=== PATIENT | female | born 1965 | race Caucasian/White ===

== ENCOUNTER 2017-11-14 08:00 | Outpatient (CLI) | payer OTHER | END 2017-11-14 08:01 | LOC: LAB.R 08:00 | PROVIDERS: ATTEND Nurse Practitioner Primary Care | DX: N30.00 Acute cystitis without hematuria (principal) | CPT/HCPCS: 87086 ==

== ENCOUNTER 2017-11-24 09:43 | Outpatient (CLI) | payer OTHER ==
[2017-11-24 10:09] LABS: BASOPHILS # (AUTO) 0.1 10^3/uL (0.0-0.1); EOSINOPHILS # (AUTO) 0.5 10^3/uL (0.0-0.7); EOSINOPHILS % (AUTO) 3.7 %; HGB - HEMOGLOBIN 14.2 g/dL (12.0-16.0); LYMPHOCYTES # (AUTO) 2.4 10^3/uL (1.5-3.5); MEAN CORPUSCULAR HGB CONC 34.1 g/dL (32.0-36.0); MEAN CORPUSCULAR VOLUME 90.8 fL (81.0-99.0); MEAN PLATELET VOLUME 7.5 fL (7.9-10.8); MONOCYTES # (AUTO) 0.6 10^3/uL (0.0-1.0); MONOCYTES % (AUTO) 5.2 %; NEUTROPHILS # (AUTO) 8.9 10^3/uL (1.5-6.6); NEUTROPHILS % (AUTO) 71.1 %; PLT - PLATELET COUNT 336 10^3/uL (130-450); RED CELL DISTRIBUTION WIDTH 12.4 % (12.0-15.0); WHITE BLOOD COUNT 12.5 x10^3/uL (4.8-10.8)
[2017-11-24 10:23] LABS: ALBUMIN 3.8 g/dL (3.2-5.5); BILIRUBIN,TOTAL 0.5 mg/dL (0.2-1.0); CREATININE 1.3 mg/dL (0.4-1.0); TOTAL PROTEIN 7.8 g/dL (6.7-8.2)
[2017-11-24] MEDS ORDERED: IOPAMIDOL-300 50 ML VIAL ONE (10:39)
[2017-11-24] MEDS ORDERED: IOPAMIDOL-300 100 ML VIAL ONE (10:39)
[2017-11-24] MEDS ORDERED: IOPAMIDOL-300 100 ML VIAL IVP ONE (11:35)
[2017-11-24] MEDS ORDERED: IOPAMIDOL-300 50 ML VIAL PO ONE (11:35)
--- NOTE | 2017-11-24 14:20 | CT Report ---
CT ABDOMEN WITH CONTRAST: 11/24/2017 CLINICAL INDICATION: Abdomen pain, epigastric region. TECHNIQUE: Axial CT images of the abdomen were obtained with 50 mL Isovue 300 intravenously, due to the patient's renal dysfunction, as well as oral contrast. COMPARISON: 11/16/2011. FINDINGS: Limited evaluation of the lung bases is unremarkable. ABDOMEN: The left kidney demonstrates marked hydronephrosis, with an 11 x 8 mm calculus in the proximal left ureter. It also demonstrates delayed contrast uptake. Bilateral nephrolithiasis is present, with collecting system calculi measuring up to 7 mm on the right and 5 mm on the left. The liver, spleen, pancreas and adrenal glands are unremarkable. The gallbladder is not dilated. No bowel dilatation, free gas, or free fluid is present. No abdominal adenopathy is seen. Osseous structures demonstrate degenerative changes. IMPRESSION: 1. OBSTRUCTING PROXIMAL LEFT URETERIC CALCULUS, MEASURING 11 X 8 MM, WITH DELAYED LEFT RENAL CONTRAST EXCRETION. 2. BILATERAL NEPHROLITHIASIS. Results called to HALINA Childs, on 11/24/2017 at 11:[address] DOSE REDUCTION STATEMENT In accordance with CT protocol optimization, one or more of the following dose reduction techniques were utilized for this exam: automated exposure control, adjustment of mA and/or KV based on patient size, or use of iterative reconstructive technique. TD: 11/24/2017 11:49 MTDD
== END 2017-11-24 09:44 | disposition home or self-care (01) ==
LOC: DI 09:43
PROVIDERS: ATTEND Nurse Practitioner Primary Care
DX: N20.2 Calculus of kidney with calculus of ureter (principal)
CPT/HCPCS: 36415; 74160; 80053; 83690; 85025; Q9967

== ENCOUNTER 2017-11-29 08:00 | Outpatient (CLI) | payer OTHER ==
[2017-11-29 11:03] LABS: BASOPHILS # (AUTO) 0.1 10^3/uL (0.0-0.1); BASOPHILS % (AUTO) 0.5 %; EOSINOPHILS # (AUTO) 0.4 10^3/uL (0.0-0.7); EOSINOPHILS % (AUTO) 2.7 %; HGB - HEMOGLOBIN 14.1 g/dL (12.0-16.0); LYMPHOCYTES # (AUTO) 1.9 10^3/uL (1.5-3.5); MEAN CORPUSCULAR HEMOGLOBIN 30.6 pg (27.0-31.0); MEAN CORPUSCULAR HGB CONC 33.6 g/dL (32.0-36.0); MEAN CORPUSCULAR VOLUME 91.1 fL (81.0-99.0); MEAN PLATELET VOLUME 7.7 fL (7.9-10.8); MONOCYTES % (AUTO) 6.4 %; NEUTROPHILS # (AUTO) 11.5 10^3/uL (1.5-6.6); NEUTROPHILS % (AUTO) 77.4 %; PLT - PLATELET COUNT 336 10^3/uL (130-450); RED CELL DISTRIBUTION WIDTH 12.5 % (12.0-15.0); WHITE BLOOD COUNT 14.9 x10^3/uL (4.8-10.8)
[2017-11-29 11:15] LABS: ALBUMIN 3.8 g/dL (3.2-5.5); BILIRUBIN,TOTAL 0.5 mg/dL (0.2-1.0); CALCIUM 8.7 mg/dL (8.5-10.3); CREATININE 1.1 mg/dL (0.4-1.0); TOTAL PROTEIN 7.6 g/dL (6.7-8.2)
== END 2017-11-29 08:01 | disposition home or self-care (01) ==
LOC: LAB.R 08:00
PROVIDERS: ATTEND Nurse Practitioner Primary Care
DX: N20.0 Calculus of kidney (principal); R10.13 Epigastric pain
CPT/HCPCS: 80053; 83690; 85025

== ENCOUNTER 2017-12-01 15:31 | Outpatient (CLI) | payer OTHER ==
--- NOTE | 2017-12-01 17:27 | Ultrasound Report ---
EXAM: ABDOMEN ULTRASOUND LIMITED, RUQ EXAM DATE: 12/01/2017 04:51 PM. CLINICAL HISTORY: ABDOMINAL PAIN, EPIGASTRIC. COMPARISON: None. TECHNIQUE: Real-time scanning was performed with static images obtained. FINDINGS: Liver: Severe fatty liver. 17.3 cm. Main portal vein flow: Hepatopetal. Gallbladder: Normal. No stones, wall thickening, or sonographic Cochran's sign. Biliary System: The common duct measures 6.2 mm, within normal limits. No intrahepatic or extrahepati c ductal dilatation. Other: The right kidney measures 10.7 cm in length and there is no hydronephrosis. IMPRESSION: 1. No cholelithiasis or cholecystitis. 2. Severe fatty liver. RADIA The call report notification system was initiated by Dr. Veronica Shirley at 17:11 hrs on 12/01/17. The above findings were discussed with HALINA Valiente by Dr. Veronica Shirley at 17:25 hrs on 12/01/17. Referring Provider Line: [phone] SITE ID: [id number]
== END 2017-12-01 15:32 | disposition home or self-care (01) ==
LOC: DI 15:31
PROVIDERS: ATTEND Nurse Practitioner Primary Care
DX: K76.0 Fatty (change of) liver, not elsewhere classified (principal)
CPT/HCPCS: 76705

== ENCOUNTER 2017-12-22 12:48 | Outpatient (CLI) | payer OTHER ==
--- NOTE | 2017-12-22 13:47 | XRAY Report ---
Procedure Date: 12/22/2017 Accession Number: [id number] / [id number] Procedure: XR - Chest 2 View X-Ray CPT Code: 48451 FULL RESULT: EXAM: Chest 2 View X-Ray DATE: 12/22/2017 1:13 PM CLINICAL HISTORY: FEVER OF UNKN,SHOULDER JOINT PAIN RIGHT COMPARISON: 01/26/2011 TECHNIQUE: 2 views. FINDINGS: Lungs/Pleura: No focal opacities evident. No pneumothorax or pleural effusion. Normal volumes. Mediastinum: Heart and mediastinal contours are unremarkable. Other: None. IMPRESSION: Normal 2-view chest radiography. RAD[facility]
--- NOTE | 2017-12-22 13:48 | XRAY Report ---
Procedure Date: 12/22/2017 Accession Number: [id number] / [id number] Procedure: XR - Shoulder 2 View RT CPT Code: FULL RESULT: EXAM: Shoulder 2 View RT DATE: 12/22/2017 1:13 PM CLINICAL HISTORY: FEVER OF UNKN,SHOULDER JOINT PAIN RIGHT COMPARISON: None. TECHNIQUE: 2 views. FINDINGS: Bones: Normal. No fracture or bone lesion. Joints: The glenohumeral and acromioclavicular joints are normal. Soft tissues: The visualized hemithorax is unremarkable. No soft tissue swelling. IMPRESSION: Normal shoulder radiography. RADIA
== END 2017-12-22 12:49 | disposition home or self-care (01) ==
LOC: DI 12:48
PROVIDERS: ATTEND Nurse Practitioner Primary Care
DX: R50.9 Fever, unspecified (principal); M25.511 Pain in right shoulder
CPT/HCPCS: 36415; 71046; 80053; 85025; 87040

== ENCOUNTER 2017-12-22 12:54 | Outpatient (CLI) | payer OTHER ==
[2017-12-22 13:36] LABS: BASOPHILS # (AUTO) 0.1 10^3/uL (0.0-0.1); BASOPHILS % (AUTO) 0.9 %; EOSINOPHILS # (AUTO) 0.3 10^3/uL (0.0-0.7); EOSINOPHILS % (AUTO) 1.9 %; HGB - HEMOGLOBIN 13.7 g/dL (12.0-16.0); LYMPHOCYTES # (AUTO) 3.1 10^3/uL (1.5-3.5); LYMPHOCYTES % (AUTO) 23.8 %; MEAN CORPUSCULAR HEMOGLOBIN 30.3 pg (27.0-31.0); MEAN CORPUSCULAR VOLUME 91.9 fL (81.0-99.0); MEAN PLATELET VOLUME 7.6 fL (7.9-10.8); MONOCYTES # (AUTO) 0.7 10^3/uL (0.0-1.0); MONOCYTES % (AUTO) 5.1 %; NEUTROPHILS % (AUTO) 68.3 %; PLT - PLATELET COUNT 355 10^3/uL (130-450); RED BLOOD COUNT 4.51 10^6/uL (4.20-5.40); RED CELL DISTRIBUTION WIDTH 12.7 % (12.0-15.0); WHITE BLOOD COUNT 13.1 x10^3/uL (4.8-10.8)
[2017-12-22 14:04] LABS: ALBUMIN 4.3 g/dL (3.2-5.5); ALBUMIN/GLOBULIN RATIO 1.1 (1.0-2.2); BILIRUBIN,TOTAL 0.2 mg/dL (0.2-1.0); TOTAL PROTEIN 8.2 g/dL (6.7-8.2)
== END 2017-12-22 12:55 | disposition home or self-care (01) ==
LOC: LAB 12:54
PROVIDERS: ATTEND Nurse Practitioner Primary Care
DX: R50.9 Fever, unspecified (principal)
CPT/HCPCS: 36415; 80053; 85025; 87040

== ENCOUNTER 2018-01-20 09:23 | Emergency (ER) | payer OTHER ==
--- NOTE | 2018-01-20 09:59 | ED Physician Documentation ---
History of Present Illness - Stated complaint Stated Complaint: ABD PX, SOA, BLOOD IN STOOL - Chief complaint Chief Complaint: Abd Pain - History obtained from History obtained from: Patient - History of Present Illness Timing: How many weeks ago (several) Pain level max: 9 Pain level now: 9 Improved by: states nothing really helps the pain Worsened by: eating - Additonal information Additional information: Patient is a 52 year old female with abd pain for several weeks. epigastric. longstanding history of ulcers. States this pain is burning. Took tums and omeprazole without relief. States the shortness of breath is just when the pain is severe. 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) - Present Medications Home Medications: Ambulatory Orders Medication Instructions Recorded Confirmed Citalopram [CeleXA] 20 mg 01/20/18 Cyclobenzaprine [Flexeril] 10 mg 01/20/18 Famotidine [Pepcid] 20 mg PO BID #60 tablet 01/20/18 Hydrocodone/Acetaminophen 1 - 2 each PO Q6H PRN #14 tablet 01/20/18 [Hydrocodon-Acetaminophen 5-325] Lamotrigine [Lamotrigine ER] 150 mg 01/20/18 Omeprazole 01/20/18 Omeprazole [PriLOSEC] 20 mg PO BID #30 capsule 01/20/18 Sucralfate [Carafate] 1 gm PO ACHS #60 tablet 01/20/18 - Allergies Allergies/Adverse Reactions: Allergies Allergy/AdvReac Type Severity Reaction Status Date / Time No Known Drug Allergies Allergy Verified 01/20/18 09:40 - Living Situation Living Situation: reports: With family Living Arrangement: reports: At home - Social History Does the pt smoke?: No Does the pt drink ETOH?: No Does the pt have substance abuse?: No - Family History Family history: reports: Non contributory PD ED PE NORMAL - Vitals Vital signs reviewed: Yes - General General: Alert and oriented X 3, No acute distress - HEENT HEENT: Moist mucous membranes - Neck Neck: Supple, no meningeal sign - Cardiac Cardiac: RRR, Strong equal pulses - Respiratory Respiratory: No respiratory distress, Clear bilaterally - Abdomen Abdomen: Soft, Non distended, Other (TTP epigastric without peritoneal signs. ) - Rectal Rectal: Other (rectal exam - chaperoned by CONVEYOR CONSOLE OPERATOR student Danyell. brown stool. non- bloody. hemoccult negative.) - Back Back: No CVA TTP - Derm Derm: Warm and dry, No rash - Extremities Extremities: No edema - Neuro Neuro: Alert and oriented X 3 - Psych Psych: Normal mood, Normal affect Results - Vitals Vitals: Vital Signs - 24 hr 01/20/18 01/20/18 01/20/18 09:33 11:06 11:44 Temperature 36.8 C 36.9 C Heart Rate 108 H 89 98 Respiratory 16 18 18 Rate Blood Pressure 155/96 H 155/105 H 137/98 H O2 Saturation 93 96 99 Oxygen O2 Source Room air - Labs Labs: Laboratory Tests 01/20/18 01/20/18 01/20/18 10:04 10:15 10:15 WBC 9.7 RBC 4.50 Hgb 13.9 Hct 41.4 MCV 91.9 MCH 31.0 MCHC 33.7 RDW 13.4 Plt Count 300 MPV 8.1 Neut # (Auto) 7.1 H Lymph # (Auto) 1.5 [place] # (Auto) 0.7 Eos # (Auto) 0.2 Baso # (Auto) 0.1 Absolute Nucleated RBC 0.00 Nucleated RBC % 0.0 PT INR APTT Sodium 134 L Potassium 4.2 Chloride 102 Carbon Dioxide 23 Anion Gap 9.0 BUN 18 Creatinine 0.8 Estimated GFR (MDRD) 75 L Glucose 154 H Calcium 9.2 Total Bilirubin 0.6 AST 30 ALT 37 Alkaline Phosphatase 112 Total Protein 7.6 Albumin 3.8 Globulin 3.8 Albumin/Globulin Ratio 1.0 Lipase 50 Urine Color YELLOW Urine Clarity CLEAR Urine pH 7.0 Ur Specific [place] 1.015 Urine Protein NEGATIVE Urine Glucose (UA) NEGATIVE Urine Ketones NEGATIVE Urine Occult Blood NEGATIVE Urine Nitrite NEGATIVE Urine Bilirubin NEGATIVE Urine Urobilinogen 0.2 (NORMAL) Ur Leukocyte Esterase NEGATIVE Ur Microscopic Review NOT INDICATED Urine Culture Comments NOT INDICATED 01/20/18 10:15 WBC RBC Hgb Hct MCV MCH MCHC RDW Plt Count MPV Neut # (Auto) Lymph # (Auto) [place] # (Auto) Eos # (Auto) Baso # (Auto) Absolute Nucleated RBC Nucleated RBC % PT 11.6 INR 1.0 APTT 25.3 Sodium Potassium Chloride Carbon Dioxide Anion Gap BUN Creatinine Estimated GFR (MDRD) Glucose Calcium Total Bilirubin AST ALT Alkaline Phosphatase Total Protein Albumin Globulin Albumin/Globulin Ratio Lipase Urine Color Urine Clarity Urine pH Ur Specific [place] Urine Protein Urine Glucose (UA) Urine Ketones Urine Occult Blood Urine Nitrite Urine Bilirubin Urine Urobilinogen Ur Leukocyte Esterase Ur Microscopic Review Urine Culture Comments PD MEDICAL DECISION MAKING - ED course Complexity details: reviewed results, re-evaluated patient, considered differential, d/w patient ED course: Patient is a 52-year-old female who presents to the emergency department with epigastric pain. Appears likely secondary to gastritis versus peptic ulcer disease. Feels better after GI cocktail and pain medication. Will increase her Prilosec to twice a day, add Pepcid and Carafate. Also recommend that she follow-up closely with her PCP for an endoscopy. Will prescribe a small amount of pain medication for home. We will have her monitor her rectal bleeding at home. No anemia here. Unclear etiology. No blood in the stool on examination here Patient counseled regarding signs and symptoms for which I believe and urgent re-evaluation would be necessary. Patient with good understanding of and agreement to plan and is comfortable going home at this time This document was made in part using voice recognition software. While efforts are made to proofread this document, sound alike and grammatical errors may occur. - Sepsis Event Vital Signs: Vital Signs - 24 hr 01/20/18 01/20/18 01/20/18 09:33 11:06 11:44 Temperature 36.8 C 36.9 C Heart Rate 108 H 89 98 Respiratory 16 18 18 Rate Blood Pressure 155/96 H 155/105 H 137/98 H O2 Saturation 93 96 99 Oxygen O2 Source Room air Departure - Departure Disposition: 01 Home, Self Care Clinical Impression: Hematochezia Gastritis Qualifiers: Gastritis type: unspecified gastritis Chronicity: acute Gastritis bleeding: without bleeding Qualified Code(s): K29.00 - Acute gastritis without bleeding Condition: Good Instructions: ED Hematochezia Stable, ED PUD Vs Gastritis Follow-Up: Alexandru Valiente ARNP [Primary Care Provider] - Within 1 week Prescriptions: Famotidine [Pepcid] 20 mg PO BID #60 tablet Hydrocodone/Acetaminophen [Hydrocodon-Acetaminophen 5-325] 1 - 2 each PO Q6H PRN #14 tablet PRN Reason: pain Omeprazole [PriLOSEC] 20 mg PO BID #30 capsule Sucralfate [Carafate] 1 gm PO ACHS #60 tablet Comments: Return if you worsen. It is important to follow-up closely with your doctor to have an endoscopy scheduled. It appears that your symptoms are likely related to your history of ulcers. You should also be tested for H. pylori. Do not drink alcohol or drive while on narcotic pain medicine. Note that many narcotic pain relievers also contain tylenol/acetaminophen. Please ensure that your total dose of acetaminophen from all sources does not exceed 3 grams (3000mg) per day. You may constipated on this medication, take a stool softener such as "Colace" twice a day while you are on it. Also recommend a kebu-ebk-crnhtvm laxative such as senna or MiraLAX any day that you do not have a bowel movement. If you received narcotic pain medication in the emergency department, do not drive or operate machinery for the next 24 hours. Discharge Date/Time: 01/20/18 11:55
[2018-01-20] MEDS ORDERED: LIDOCAINE VISCOUS 2% 15 ML UDC MM STA (10:02)
[2018-01-20] MEDS ORDERED: MAG HYDROX/AL HYDROX/SIMETH 30 ML UDC PO STA (10:02)
[2018-01-20] MEDS ORDERED: FAMOTIDINE 20 MG TABLET PO STA (10:02)
[2018-01-20] MEDS ORDERED: PHENobarb/HYOSCY/ATROPINE/SCOP 5 ML UDC PO STA (10:02)
[2018-01-20] MEDS ORDERED: SUCRALFATE 1 GM/10 ML UDC PO STA (10:02)
[2018-01-20 10:11] LABS: BILIRUBIN,URINE NEGATIVE (NEGATIVE); GLUCOSE, URINE (UA) NEGATIVE (NEGATIVE); KETONES,URINE (UA) NEGATIVE (NEGATIVE); LEUKOCYTE ESTERASE, URINE NEGATIVE (NEGATIVE); NITRITE,URINE NEGATIVE (NEGATIVE); OCCULT BLOOD,URINE NEGATIVE (NEGATIVE); PROTEIN,URINE NEGATIVE (NEGATIVE); UROBILINOGEN,URINE 0.2 (NORMAL) E.U./dL (NORMAL)
[2018-01-20 10:17] LABS: CLARITY,URINE CLEAR (CLEAR)
[2018-01-20 10:35] LABS: BASOPHILS # (AUTO) 0.1 10^3/uL (0.0-0.1); EOSINOPHILS # (AUTO) 0.2 10^3/uL (0.0-0.7); HGB - HEMOGLOBIN 13.9 g/dL (12.0-16.0); LYMPHOCYTES # (AUTO) 1.5 10^3/uL (1.5-3.5); LYMPHOCYTES % (AUTO) 15.9 %; MEAN CORPUSCULAR HGB CONC 33.7 g/dL (32.0-36.0); MEAN CORPUSCULAR VOLUME 91.9 fL (81.0-99.0); MEAN PLATELET VOLUME 8.1 fL (7.9-10.8); MONOCYTES # (AUTO) 0.7 10^3/uL (0.0-1.0); MONOCYTES % (AUTO) 7.7 %; NEUTROPHILS # (AUTO) 7.1 10^3/uL (1.5-6.6); NEUTROPHILS % (AUTO) 73.4 %; PLT - PLATELET COUNT 300 10^3/uL (130-450); RED CELL DISTRIBUTION WIDTH 13.4 % (12.0-15.0); WHITE BLOOD COUNT 9.7 x10^3/uL (4.8-10.8)
[2018-01-20 10:45] LABS: PT - PROTHROMBIN TIME 11.6 secs (9.9-12.6)
[2018-01-20 10:47] LABS: ALBUMIN 3.8 g/dL (3.2-5.5); BILIRUBIN,TOTAL 0.6 mg/dL (0.2-1.0); CALCIUM 9.2 mg/dL (8.5-10.3); CREATININE 0.8 mg/dL (0.4-1.0); TOTAL PROTEIN 7.6 g/dL (6.7-8.2)
[2018-01-20] MEDS ORDERED: MORPHINE 10 MG/ML VIAL IVP STA (11:00)
[2018-01-20] MEDS ORDERED: HYDROcod/ACETAM 5/325 MG TABLET PO STA (11:40)
[2018-01-20 11:45] VITALS: BP 137/98
== END 2018-01-20 11:55 | disposition home or self-care (01) ==
LOC: ED 09:23
DX: K29.00 Acute gastritis without bleeding (principal); K92.1 Melena; Z87.11 Personal history of peptic ulcer disease; Z87.442 Personal history of urinary calculi
CPT/HCPCS: 36415; 80053; 81003; 83690; 85025; 85610; 85730; 96374; 99283; 99284; A9270; 81001; 87086

== ENCOUNTER 2018-03-13 08:00 | Outpatient (CLI) | payer OTHER ==
[2018-03-13 18:36] LABS: BILIRUBIN,URINE NEGATIVE (NEGATIVE); CLARITY,URINE CLEAR (CLEAR); GLUCOSE, URINE (UA) NEGATIVE (NEGATIVE); KETONES,URINE (UA) TRACE mg/dL (NEGATIVE); LEUKOCYTE ESTERASE, URINE NEGATIVE (NEGATIVE); NITRITE,URINE NEGATIVE (NEGATIVE); OCCULT BLOOD,URINE NEGATIVE (NEGATIVE); PROTEIN,URINE NEGATIVE (NEGATIVE); UROBILINOGEN,URINE 0.2 (NORMAL) E.U./dL (NORMAL)
== END 2018-03-13 08:01 | disposition home or self-care (01) ==
LOC: LAB.R 08:00
PROVIDERS: ATTEND Nurse Practitioner Primary Care
DX: N20.0 Calculus of kidney (principal); M54.5 Low back pain
CPT/HCPCS: 81001; 81003; 87086

== ENCOUNTER 2018-03-29 17:24 | Outpatient (CLI) | payer OTHER ==
--- NOTE | 2018-03-30 08:46 | XRAY Report ---
Reason: BACK PAIN,LUMBAR WITH RADCULOPATHY Procedure Date: 03/29/2018 Accession Number: [id number] / [id number] Procedure: XR - Lumbar Spine 2 View CPT Code: FULL RESULT: EXAM: LUMBOSACRAL SPINE RADIOGRAPHY EXAM DATE: 03/29/2018 05:38 PM. CLINICAL HISTORY: Back pain, lumbar with radiculopathy. COMPARISONS: None. TECHNIQUE: 2 views. FINDINGS: Alignment: There is 2 mm of anterolisthesis of L5 on S1. No scoliosis. Bones: Five [id number] lumbar vertebral bodies are present. No fractures or bone lesions. Disks: Normal. Disk heights are maintained. Facets: Marked facet arthropathy is seen at the L5-S1 distribution. Sacroiliac Joints: Unremarkable. Soft Tissues: Normal. The visualized bowel gas pattern is normal. IMPRESSION: Combination of marked single level facet arthropathy with mild grade 1 anterolisthesis at L5-S1 raises the question of spondylolysis which is not visualized on the examination. RAD[facility]
== END 2018-03-29 17:25 | disposition home or self-care (01) ==
LOC: DI 17:24
PROVIDERS: ATTEND Nurse Practitioner Primary Care
DX: M54.16 Radiculopathy, lumbar region (principal); M07.60 Enteropathic arthropathies, unspecified site
CPT/HCPCS: 72100

== ENCOUNTER 2018-05-09 08:15 | Outpatient (CLI) | payer OTHER | END 2018-05-09 08:16 | LOC: LAB.N 08:15 | PROVIDERS: ATTEND Nurse Practitioner Primary Care | DX: E55.9 Vitamin D deficiency, unspecified (principal) | CPT/HCPCS: 36415; 82306 ==

== ENCOUNTER 2018-05-10 09:31 | Emergency (ER) | payer OTHER ==
[2018-05-10 09:41] VITALS: BP 151/88
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
== END 2018-05-10 11:07 | disposition home or self-care (01) ==
LOC: ED 09:31
DX: S60.211A Contusion of right wrist, initial encounter (principal); Y00.XXXA Assault by blunt object, initial encounter; Y93.89 Activity, other specified; Y92.099 Unspecified place in other non-institutional residence as the place of occurrence of the external cause; Y99.0 Civilian activity done for income or pay; I10 Essential (primary) hypertension; E11.9 Type 2 diabetes mellitus without complications; Z79.84 Long term (current) use of oral hypoglycemic drugs
CPT/HCPCS: 1040M; 29125; 73110; 99282; 99283

== ENCOUNTER 2018-06-05 11:45 | Outpatient (CLI) | payer OTHER | END 2018-06-05 11:46 | disposition home or self-care (01) | LOC: RT 11:45 | PROVIDERS: ATTEND Physician Assistant | DX: Z01.810 Encounter for preprocedural cardiovascular examination (principal) | CPT/HCPCS: 93005 ==

== ENCOUNTER 2018-11-23 08:00 | Outpatient (CLI) | payer OTHER | END 2018-11-23 23:59 | disposition home or self-care (01) | LOC: LAB.R 08:00 | PROVIDERS: ATTEND Nurse Practitioner | DX: N39.0 Urinary tract infection, site not specified (principal) | CPT/HCPCS: 87086 ==

== ENCOUNTER 2019-01-01 11:43 | Outpatient (CLI) | payer OTHER | END 2019-01-01 11:44 | disposition critical access hospital (66) | LOC: EMS 11:43 | PROVIDERS: ATTEND Surgery | DX: R50.9 Fever, unspecified (principal); R68.89 Other general symptoms and signs; R11.10 Vomiting, unspecified | CPT/HCPCS: A0425; A0429 ==

== ENCOUNTER 2019-01-01 12:02 | Emergency (ER) | payer OTHER ==
[2019-01-01] MEDS ORDERED: PROMETHAZINE INJ 25 MG in SODIUM CHLORIDE 0.9% 50 ML IV STA (12:22)
[2019-01-01] MEDS ORDERED: SODIUM CHLORIDE 0.9% 1,000 ML IV ONE ×2 (12:23)
--- NOTE | 2019-01-01 12:27 | ED Physician Documentation ---
History of Present Illness - Stated complaint Stated Complaint: FEVER - Chief complaint Chief Complaint: Fever - History obtained from History obtained from: Patient - History of Present Illness Timing: How many weeks ago (1) Pain level max: 3 Pain level now: 3 - Additonal information Additional information: 53-year-old female presents to the emergency department with fever since last week. She states she has not had coughing. Has had intermittent vomiting. Has left-sided abdominal pain as well. No diarrhea or constipation. No urinary symptoms. No neck pain. No back pain. Did have back surgery in May 2017. She is not having any pain in this area currently. No numbness or tingling. No focal neurological deficits. Better with Tylenol, worse with eating and drinking. Review of Systems Ten Systems: 10 systems reviewed and negative Constitutional: reports: Fever Ears: denies: Ear pain Nose: denies: Rhinorrhea / runny nose, Congestion Throat: denies: Sore throat Respiratory: denies: Cough, Wheezing GI: reports: Abdominal Pain (Left side), Nausea, Vomiting. 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 - Present Medications Home Medications: Ambulatory Orders Medication Instructions Recorded Confirmed Citalopram [CeleXA] 20 mg PO DAILY 01/20/18 05/08/18 Cyclobenzaprine [Flexeril] 10 mg PO QPM 01/20/18 05/08/18 Lamotrigine [Lamotrigine ER] 100 mg PO BID 01/20/18 05/08/18 Cholecalciferol [Vitamin D3] 10,000 unit PO DAILY 05/08/18 05/08/18 Dextroamphetamine/Amphetamine 20 mg PO DAILY 05/08/18 05/08/18 [Adderall 20 mg Tablet] Metformin HCl 500 mg PO DAILY 05/08/18 05/08/18 Omeprazole [PriLOSEC] 40 mg PO DAILY 05/08/18 05/08/18 Sucralfate [Carafate] 1 gm PO Q6H 05/08/18 05/08/18 - Allergies Allergies/Adverse Reactions: Allergies Allergy/AdvReac Type Severity Reaction Status Date / Time No Known Drug Allergies Allergy Verified 05/10/18 09:41 - Social History Does the pt smoke?: No Smoking Status: Never smoker Does the pt drink ETOH?: No Does the pt have substance abuse?: No PD ED PE NORMAL - Vitals Vital signs reviewed: Yes - General General: Alert and oriented X 3, No acute distress, Well developed/nourished - HEENT HEENT: PERRL, Moist mucous membranes - Neck Neck: Supple, no meningeal sign - Cardiac Cardiac: RRR, Strong equal pulses - Respiratory Respiratory: No respiratory distress, Clear bilaterally - Abdomen Abdomen: Soft, Non distended, Other (Tender to palpation left lower quadrant and left upper quadrant. No peritoneal signs) - Back Back: No CVA TTP, No spinal TTP - Derm Derm: Warm and dry - Extremities Extremities: No edema, No calf tenderness / cord - Neuro Neuro: Alert and oriented X 3 - Psych Psych: Normal mood, Normal affect Results - Vitals Vitals: Vital Signs - 24 hr 01/01/19 01/01/19 01/01/19 12:06 12:14 15:20 Temperature 39.2 C H 39.2 C H 99.4 C H Heart Rate 114 H 106 H 97 Respiratory 25 H 20 25 H Rate Blood Pressure 156/92 H 156/97 H 161/92 H O2 Saturation 99 96 98 01/01/19 01/01/19 17:00 20:04 Temperature 37.1 C Heart Rate 110 H 108 H Respiratory 20 20 Rate Blood Pressure 125/81 H 129/85 H O2 Saturation 99 99 Oxygen O2 Source Room air - Labs Labs: Laboratory Tests 01/01/19 01/01/19 01/01/19 12:40 13:07 13:07 WBC 22.5 H RBC 3.98 L Hgb 10.9 L Hct 33.8 L MCV 84.9 MCH 27.4 MCHC 32.2 RDW 14.8 Plt Count 396 MPV 9.5 Neut # (Auto) 20.3 H Lymph # (Auto) 0.7 L [place] # (Auto) 1.2 H Eos # (Auto) 0.1 Baso # (Auto) 0.1 Absolute Nucleated RBC 0.00 Nucleated RBC % 0.0 Manual Slide Review Indicated Platelet Estimate NORMAL (130-450,000) Platelet Morphology NORMAL APPEARANCE RBC Morph Micro Appear NORMAL APPEARANCE Sodium 132 L Potassium 3.7 Chloride 100 L Carbon Dioxide 18 L Anion Gap 14.0 H BUN 22 H Creatinine 1.4 H Estimated GFR (MDRD) 39 L Glucose 152 H Lactic Acid 0.9 Calcium 8.7 Total Bilirubin 0.6 AST 17 ALT 18 Alkaline Phosphatase 122 H Total Protein 7.1 Albumin 3.3 Globulin 3.8 Albumin/Globulin Ratio 0.9 L Lipase 40 Urine Color Urine Clarity Urine pH Ur Specific [place] Urine Protein Urine Glucose (UA) Urine Ketones Urine Occult Blood Urine Nitrite Urine Bilirubin Urine Urobilinogen Ur Leukocyte Esterase Urine RBC Urine WBC Ur Squamous Epith Cells Urine Bacteria Ur Microscopic Review Urine Culture Comments 01/01/19 13:25 WBC RBC Hgb Hct MCV MCH MCHC RDW Plt Count MPV Neut # (Auto) Lymph # (Auto) [place] # (Auto) Eos # (Auto) Baso # (Auto) Absolute Nucleated RBC Nucleated RBC % Manual Slide Review Platelet Estimate Platelet Morphology RBC Morph Micro Appear Sodium Potassium Chloride Carbon Dioxide Anion Gap BUN Creatinine Estimated GFR (MDRD) Glucose Lactic Acid Calcium Total Bilirubin AST ALT Alkaline Phosphatase Total Protein Albumin Globulin Albumin/Globulin Ratio Lipase Urine Color YELLOW Urine Clarity SL. CLOUDY Urine pH 7.5 Ur Specific [place] 1.010 Urine Protein 30 H Urine Glucose (UA) NEGATIVE Urine Ketones NEGATIVE Urine Occult Blood LARGE H Urine Nitrite NEGATIVE Urine Bilirubin NEGATIVE Urine Urobilinogen 0.2 (NORMAL) Ur Leukocyte Esterase LARGE H Urine RBC 11-25 H Urine WBC 6-10 H Ur Squamous Epith Cells RARE Squamous Urine Bacteria Rare Ur Microscopic Review INDICATED Urine Culture Comments INDICATED - Rads (name of study) CT abd/pelvis Radiology: Prelim report reviewed, EMP read contemporaneously, See rad report (Obstructing left distal ureteral calculus, 0.9 cm. Suggestion of nonobstructing 6 mm right distal ureteral calculus as described. ) PD MEDICAL DECISION MAKING - ED course Complexity details: reviewed results, re-evaluated patient, considered differential, d/w patient, d/w it consultant ED course: 53-year-old female with what appears to be bilateral ureteral stones, the left side is 0.9 cm. Causing hydronephrosis. Also has more stones in the renal calyx. Appears to have a right-sided 6 mm stone as well. She has been having fevers for the past week. No vomiting. Given Rocephin. Given IV fluids. Given Zofran, Phenergan and Toradol. She has a urologist Dr. Holman In [place]. Will contact him for transfer. 1600 d/w Dr. Holman and recommends transfer to [facility] in [place] for further care. 1700 - D/w ED MD at [facility] and recommends hospitalist admission. D/w Dr. Calvillo hospitalist who graciously accepts in transfer. COBRA forms completed. This document was made in part using voice recognition software. While efforts are made to proofread this document, sound alike and grammatical errors may occur. Departure - Departure Disposition: 02 Transfer Acute Care Hosp Clinical Impression: Ureteral stone, Pyelonephritis Fever Qualifiers: Fever type: unspecified Qualified Code(s): R50.9 - Fever, unspecified Vomiting Qualifiers: Vomiting type: unspecified Vomiting Intractability: non-intractable Nausea presence: with nausea Qualified Code(s): R11.2 - Nausea with vomiting, unspecified Condition: Stable Discharge Date/Time: 01/01/19 21:18
[2019-01-01] MEDS ORDERED: IOVERSOL 320 100 ML VIAL IVP ONE ×2 (12:52→14:50)
--- NOTE | 2019-01-01 13:06 | XRAY Report ---
Reason: fever Procedure Date: 01/01/2019 Accession Number: [id number] / [id number] Procedure: XR - Chest 1 View X-Ray CPT Code: 93660 FULL RESULT: EXAM: CHEST RADIOGRAPHY EXAM DATE: 01/01/2019 12:55 PM. CLINICAL HISTORY: Fever. COMPARISON: CHEST 2 VIEW 12/22/2017 12:58 PM. TECHNIQUE: 1 view. FINDINGS: Lungs/Pleura: No focal opacities evident. No pleural effusion. No pneumothorax. Mediastinum: Within exam limitations, the cardiomediastinal contour is normal. Other: None. IMPRESSION: No definite pneumonia is detected. RADIA
[2019-01-01 13:10] LABS: BASOPHILS # (AUTO) 0.1 10^3/uL (0.0-0.1); BASOPHILS % (AUTO) 0.3 %; EOSINOPHILS # (AUTO) 0.1 10^3/uL (0.0-0.7); EOSINOPHILS % (AUTO) 0.3 %; HGB - HEMOGLOBIN 10.9 g/dL (12.0-16.0); LYMPHOCYTES # (AUTO) 0.7 10^3/uL (1.5-3.5); LYMPHOCYTES % (AUTO) 3.1 %; MEAN CORPUSCULAR HEMOGLOBIN 27.4 pg (27.0-31.0); MEAN CORPUSCULAR HGB CONC 32.2 g/dL (32.0-36.0); MEAN CORPUSCULAR VOLUME 84.9 fL (81.0-99.0); MEAN PLATELET VOLUME 9.5 fL (7.9-10.8); MONOCYTES # (AUTO) 1.2 10^3/uL (0.0-1.0); MONOCYTES % (AUTO) 5.2 %; NEUTROPHILS # (AUTO) 20.3 10^3/uL (1.5-6.6); PLT - PLATELET COUNT 396 10^3/uL (130-450); RED BLOOD COUNT 3.98 10^6/uL (4.20-5.40); RED CELL DISTRIBUTION WIDTH 14.8 % (12.0-15.0); WHITE BLOOD COUNT 22.5 x10^3/uL (4.8-10.8)
[2019-01-01 13:26] LABS: ALBUMIN 3.3 g/dL (3.2-5.5); ALBUMIN/GLOBULIN RATIO 0.9 (1.0-2.2); BILIRUBIN,TOTAL 0.6 mg/dL (0.2-1.0); CALCIUM 8.7 mg/dL (8.5-10.3); CREATININE 1.4 mg/dL (0.4-1.0); TOTAL PROTEIN 7.1 g/dL (6.7-8.2)
[2019-01-01] MEDS ORDERED: ACETAMINOPHEN 325 MG TABLET PO STA (13:26)
[2019-01-01 13:38] LABS: BILIRUBIN,URINE NEGATIVE (NEGATIVE); GLUCOSE, URINE (UA) NEGATIVE (NEGATIVE); KETONES,URINE (UA) NEGATIVE (NEGATIVE); LEUKOCYTE ESTERASE, URINE LARGE (NEGATIVE); NITRITE,URINE NEGATIVE (NEGATIVE); OCCULT BLOOD,URINE LARGE (NEGATIVE); PH,URINE 7.5 PH (5.0-7.5); PROTEIN,URINE 30 mg/dL (NEGATIVE); UROBILINOGEN,URINE 0.2 (NORMAL) E.U./dL (NORMAL)
[2019-01-01 13:41] LABS: CLARITY,URINE SL. CLOUDY (CLEAR)
[2019-01-01 13:43] LABS: PLATELET ESTIMATE, MANUAL NORMAL (130-450,000) (NORMAL); PLATELET MORPHOLOGY NORMAL APPEARANCE (NORMAL); RBC MORPHOLOGY (MULTIPLE) NORMAL APPEARANCE (NORMAL)
[2019-01-01 13:50] LABS: BACTERIA,URINE Rare /HPF (None Seen); SQUAMOUS EPITHELIAL CELL,UR RARE Squamous (<= Few)
[2019-01-01] MEDS ORDERED: ONDANSETRON 4 MG/2 ML VIAL IVP STA (14:10)
[2019-01-01] MEDS ORDERED: cefTRIAXone 1 GM VIAL IVP STA (14:30)
--- NOTE | 2019-01-01 15:02 | CT Report ---
Reason: fever, vomiting Procedure Date: 01/01/2019 Accession Number: [id number] / [id number] Procedure: CT - Abdomen/Pelvis W CPT Code: FULL RESULT: EXAM: CT ABDOMEN AND PELVIS WITH CONTRAST. EXAM DATE: 01/01/2019 02:29 PM. CLINICAL HISTORY: Fever, vomiting. COMPARISONS: CT ABDOMEN W/ 11/24/2017. TECHNIQUE: Routine helical CT imaging was performed through the abdomen and pelvis. IV contrast: OPTI-320 100 mL. Enteric contrast: No. Reconstructions: Coronal and sagittal. In accordance with CT protocol optimization, one or more of the following dose reduction techniques were utilized for this exam: automated exposure control, adjustment of mA and/or KV based on patient size, or use of iterative reconstructive technique. FINDINGS: Lung Bases: Unremarkable. Liver: Normal. No masses. Gallbladder/Bile Ducts: Unremarkable. Spleen: Normal. Pancreas: Normal. Adrenal Glands: Normal. Kidneys: Left kidney is enlarged with dilation of the collecting system and ureter as well as perinephric fat stranding in the setting of obstructing distal left 0.9 cm ureteral calculus. Left kidney contains additional nonobstructing calculi, the largest of which is within the renal pelvis and measures 1.4 x 1.3 cm. Right kidney contains a nonobstructing 0.7 cm calculus and demonstrates no hydronephrosis despite what is felt to be a 0.6 cm distal ureteral calculus near the ureterovesical junction on the right. Bilateral renal hypodensities are too small to characterize. Peritoneal Cavity/Bowel: There is no free fluid or free air. No bowel obstruction. Prominent lymph nodes adjacent to the left kidney as seen on image 33 series 3 are felt to be reactive given the adjacent pathology. Pelvic Organs: Bladder is empty with subjectively thick bladder, possibly due to underdistention. Vasculature: No aneurysms or other significant abnormality. Bones: The patient is status post L4-L5 fusion with interbody graft and posterior pedicle screws bilaterally at both levels with interconnecting tahmina. No aggressive osseous lesions are detected. Other: None. IMPRESSION: Obstructing left distal ureteral calculus, 0.9 cm. Suggestion of nonobstructing 6 mm right distal ureteral calculus as described. RADIA The call report notification system was initiated by Dr. Juan Jose Rhoades at 03:00 PM on 01/01/2019. The above call report findings were discussed with Paresh Gomez by Dr. Juan Jose Rhoades at 03:07 PM on 01/01/2019.
[2019-01-01] MEDS ORDERED: KETOROLAC 30 MG/ML VIAL IVP STA (15:09)
[2019-01-01] MEDS ORDERED: HYDROmorphone 1 MG/ML CARPUJECT IVP STA ×4 (16:29→21:03)
[2019-01-01 20:05] VITALS: BP 129/85
== END 2019-01-01 21:18 | disposition short-term general hospital (02) ==
LOC: EDUNIT# → ED 12:02
DX: N13.2 Hydronephrosis with renal and ureteral calculous obstruction (principal); N12 Tubulo-interstitial nephritis, not specified as acute or chronic; I10 Essential (primary) hypertension; E11.9 Type 2 diabetes mellitus without complications; Z79.84 Long term (current) use of oral hypoglycemic drugs; K21.9 Gastro-esophageal reflux disease without esophagitis
CPT/HCPCS: 36415; 71045; 74177; 80053; 81001; 83605; 83690; 85025; 87077; 87086; 87181; 96365; 96375; 96376; 99285; A9270; J1170; J7040; Q9967; 81003

== ENCOUNTER 2019-01-07 11:19 | Outpatient (CLI) | payer OTHER ==
[2019-01-07 11:36] LABS: BILIRUBIN,URINE NEGATIVE (NEGATIVE); CLARITY,URINE HAZY (CLEAR); GLUCOSE, URINE (UA) NEGATIVE (NEGATIVE); KETONES,URINE (UA) NEGATIVE (NEGATIVE); LEUKOCYTE ESTERASE, URINE MODERATE (NEGATIVE); NITRITE,URINE NEGATIVE (NEGATIVE); OCCULT BLOOD,URINE MODERATE (NEGATIVE); PH,URINE 6.5 PH (5.0-7.5); PROTEIN,URINE 100 mg/dL (NEGATIVE); UROBILINOGEN,URINE 0.2 (NORMAL) E.U./dL (NORMAL)
[2019-01-07 11:43] LABS: ALBUMIN 3.6 g/dL (3.2-5.5); ALBUMIN/GLOBULIN RATIO 0.7 (1.0-2.2); BILIRUBIN,TOTAL 0.2 mg/dL (0.2-1.0); CREATININE 1.5 mg/dL (0.4-1.0); TOTAL PROTEIN 8.6 g/dL (6.7-8.2)
[2019-01-07 12:03] LABS: BACTERIA,URINE Few /HPF (None Seen); SQUAMOUS EPITHELIAL CELL,UR MANY Squamous (<= Few); WBC CLUMPS,URINE PRESENT
== END 2019-01-07 11:20 | disposition home or self-care (01) ==
LOC: LAB 11:19
PROVIDERS: ATTEND Nurse Practitioner
DX: N12 Tubulo-interstitial nephritis, not specified as acute or chronic (principal)
CPT/HCPCS: 36415; 80053; 81001; 81003; 87086

== ENCOUNTER 2019-01-14 13:30 | Outpatient (CLI) | payer OTHER | END 2019-01-14 13:31 | disposition home or self-care (01) | LOC: LAB 13:30 | PROVIDERS: ATTEND Urology | DX: T81.44XA Sepsis following a procedure, initial encounter (principal); N20.0 Calculus of kidney | CPT/HCPCS: 87086 ==

== ENCOUNTER 2019-04-23 08:58 | Outpatient (CLI) | payer OTHER ==
--- NOTE | 2019-04-23 09:41 | SLEEP CARE CONSULTATION ---
Information from patient questionnaire entered by Negar Meza. I have reviewed and concur with the information entered by Negar Meza. This document represents the service I personally performed and the decisions made by me, Carlota Leroy MD, [facility]. History of Present Illness Reason for Visit: New patient Chief Complaint: reports: Insomnia, Unrefreshed sleep, Snoring, Excessive daytime sleepiness, Observed pauses in breathing, Fatigue, Frequent awakenings at night Usual bedtime: [id number] Time it takes to fall asleep: 30 minutes Snores at night: Yes Observed to quit breathing while asleep: Yes Sleeps alone due to snoring: No Number of times waking at night: 2-3 Reasons for waking at night: reports: Gasping for air, Bathroom Toss, Turn, or Twitch while sleeping: Yes Recalls having dreams: Yes Usually gets out of bed at: 0600 Feels refreshed in the morning: No Morning headache: Yes Sleepy or fatigued during the day: Yes Ever fallen asleep while driving: Yes Takes day naps: No Dreams during day naps: Yes Prior sleep studies: No Additional HPI information: I had the pleasure of seeing Ms. Mccormick today regarding the possibility of her having a sleep disorder. As you know, she is a 53 year old lady who has been instructed by hospital staff on several occasions to have a sleep study because they witnessed snore and apneic episodes during her hospital stays. She, however, has lost 50 lbs in the last 6 months. At home she sleeps alone but recalls waking up choking and having to gasp for air. She is sleepy during the day. She is bothered by restless leg syndrome. Subjective Initial [place] Sleepiness Scale score: 13 Past Medical History Past Medical History: reports: Claustrophobia, Diabetes, Arthritis, Hypothyroidism, Anemia, Anxiety, Depression, Mood disorder, GERD, Attention deficit, Other (shoulder surgery) Social History The patient's occupation is a [employer]. Patient is and lives in [place]. Have you smoked in the past 12 months: No Alcohol use: No Caffeine use: No Family History Family history of sleep disordered breathing: Yes Family Hx Sleep Apnea: Sibling: Sleep apnea - Treated Allergies and Home Medications Drug allergies reviewed: Yes Home medication list reviewed: Yes Review of Systems Weight loss over past 5 years: 50 Cardiovascular: denies: high blood pressure, palpitations, chest pain, irregular heart rate or pulse, leg or foot swelling, have to sleep sitting up, other Respiratory: reports: shortness of breath Gastrointestinal: reports: heartburn, nausea, vomitting Urinary: reports: frequency (but I drink a lot of water because of meds), other (kidney stones) Neurological: reports: headaches, other (back surgery) Psychiatric: reports: Attention Deficit Hyperactivity, anxiety, depression, mood disorder, claustrophobia Ear/Nose/Throat: reports: dry mouth/throat, tonsillectomy, wisdom teeth removed Endocrine: reports: thyroid disease, sluggishness, too hot or cold (*hot), excessive thirst Musculoskeletal: reports: joint pain, back pain, mobility problems, other (had back/shoulder surgery 06/12,09/11,10/12, still in physical therapy for shoulder) Immunologic: denies: sneezing, rash, itching, allergies to food or environment, other Physical Exam Vital signs obtained and entered by: Dr. Leroy Blood Pressure: 137/92 Heart Rate: 91 O2 Saturation: 97 Height: 4 ft 10 in Weight: 151 lb Body Mass Index: 31.5 BMI Classification: Obesity Class 1 Neck circumference: 14.5 HEENT: No craniofacial malformation Nostrils: patent to airflow Turbinates: normal Septum: midline Mouth and throat: normal Soft palate: normal Hard palate: normal Uvula: normal Uvula visualization: 100% Mallampati Class I Tongue: normal in size Tonsils: absent bilaterally Chin and jaw: normal size and position Neck: normal w/o lymphadenopathy or thyromegaly Heart: regular rate and rhythm Lungs: clear bilaterally Abdomen: soft, non-tender Extremities: no edema or clubbing Neurologic: intact, no focal deficits Impression and Plan IMPRESSION: 1. Obstructive Sleep Apnea-Hypopnea Syndrome, as suggested by history of loud and irregular snoring, observed cessation of breath while asleep, frequent awakenings during the night, unrefreshed sleep, and daytime hypersomnolence. Obesity is a common predisposing factor for obstructive sleep apnea-hypopnea syndrome. Pathophysiology of sleep-disordered breathing was discussed. I recommend proceeding to polysomnography to confirm the diagnosis and to assess severity. If she has significant sleep disordered breathing, a manual CPAP titration study will also be performed to find the optimal treatment pressure. I informed the patient of what the sleep studies involve and after some discussion, she agreed to proceed. Plan: 1. Schedule polysomnography + manual CPAP titration study and return in 1 to 2 weeks after the study to discuss result and initiate therapy. 2. Avoid long distance driving or when feeling sleepy. 3. Avoid alcohol, sedative and muscle relaxant around bedtime. 4. Attempt to lose weight. I spent 100% of this 20 minute visit face to face with the patient with greater than 50% of this was spent time counseling the patient and coordination of care.
[2019-04-23 09:42] VITALS: BP 137/92
== END 2019-04-23 08:59 | disposition home or self-care (01) ==
LOC: SC 08:58
PROVIDERS: ATTEND Internal Medicine Pulmonary Disease
DX: G47.10 Hypersomnia, unspecified (principal); R06.81 Apnea, not elsewhere classified; G47.8 Other sleep disorders; R06.83 Snoring; E66.9 Obesity, unspecified; Z68.31 Body mass index [BMI] 31.0-31.9, adult
CPT/HCPCS: 99203; 99212

== ENCOUNTER 2019-06-02 19:45 | Emergency (ER) | payer OTHER ==
--- NOTE | 2019-06-02 20:42 | ED Physician Documentation ---
PD HPI Fall - Stated complaint Stated Complaint: GLF/R SHOULDER/BACK/HEAD PX - Chief complaint Chief Complaint: Back Pain - History obtained from History obtained from: Patient - History of Present Illness Mechanism of injury: Lost balance Fall distance: Standing position, Less than 5ft Where injury occurred: Home Timing - onset: Today Injury(ies) location: Head, Back, Right Upper Extremity Quality of pain: Pain Associated symptoms: Nausea / vomiting, Other (trouble concentrating). 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 She fell and hit the left side of her head she is complaining of some pain in her right shoulder and her lower back. She has had surgery on her lower back in her right surgery right shoulder in September of this year her pain is rated as a 7 out of 10 in the shoulder as a 6 out of 10 in the back and she has some trouble concentrating and a bit of nausea she does not think she was knocked out and she denies any neck pain. Review of Systems Constitutional: denies: Fever Eyes: denies: Decreased vision Ears: denies: Ear pain Nose: denies: Congestion Throat: denies: Sore throat Cardiac: denies: Chest pain / pressure, Palpitations Respiratory: denies: Dyspnea, Cough GI: reports: Nausea Skin: denies: Rash Musculoskeletal: reports: Back pain, Joint pain. denies: Neck pain, Joint swelling Neurologic: reports: Other (trouble concentrating). 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 - Present Medications Home Medications: Ambulatory Orders Medication Instructions Recorded Confirmed Citalopram [CeleXA] 20 mg PO DAILY 01/20/18 05/08/18 Cyclobenzaprine [Flexeril] 10 mg PO QPM 01/20/18 05/08/18 Lamotrigine [Lamotrigine ER] 100 mg PO BID 01/20/18 05/08/18 Cholecalciferol [Vitamin D3] 10,000 unit PO DAILY 05/08/18 05/08/18 Dextroamphetamine/Amphetamine 20 mg PO DAILY 05/08/18 05/08/18 [Adderall 20 mg Tablet] Metformin HCl 500 mg PO DAILY 05/08/18 05/08/18 Omeprazole [PriLOSEC] 40 mg PO DAILY 05/08/18 05/08/18 Sucralfate [Carafate] 1 gm PO Q6H 05/08/18 05/08/18 Oxycodone HCl/Acetaminophen 1 - 2 each PO Q6H PRN #14 tablet 06/02/19 [Percocet 5-325 mg Tablet] - Allergies Allergies/Adverse Reactions: Allergies Allergy/AdvReac Type Severity Reaction Status Date / Time No Known Drug Allergies Allergy Verified 05/10/18 09:41 - Social History Does the pt smoke?: No Smoking Status: Never smoker Does the pt drink ETOH?: No Does the pt have substance abuse?: No PD ED PE NORMAL - Vitals Vital signs reviewed: Yes (hypertensive ) - General General: Alert and oriented X 3, Well developed/nourished, Other (Facial expression of pain with admissions evaluator tone and flattened affect.) - HEENT HEENT: PERRL, EOMI, Other (Tender left occipital scalp with out crepitance or step-off.) - Neck Neck: Supple, no meningeal sign, No bony TTP - Cardiac Cardiac: RRR, No murmur - Respiratory Respiratory: No respiratory distress, Clear bilaterally - Abdomen Abdomen: Soft, Non tender - Back Back: No CVA TTP, Other (Minimal lower lumbar paraspinous muscle tenderness. Bilateral) - Derm Derm: Normal color, Warm and dry, No rash - Extremities Extremities: No deformity, No edema, Other (There is full range of motion to the right shoulder and she is able to hold the shoulder in abduction. 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, No motor deficit, No sensory deficit, Normal speech Eye Opening: Spontaneous Motor: Obeys Commands Verbal: Oriented GCS Score: 15 - Psych Psych: Normal mood Results - Vitals Vitals: Vital Signs - 24 hr 06/02/19 19:50 Temperature 36.3 C L Heart Rate 96 Respiratory 18 Rate Blood Pressure 126/82 H O2 Saturation 99 Oxygen O2 Source Room air - Rads (name of study) shoulder Radiology: Prelim report reviewed (Impression: No acute bony abnormality.), EMP read indepedently, See rad report CT head w/o Radiology: Prelim report reviewed (Impression: Normal head CT.), EMP read indepedently, See rad report PD MEDICAL DECISION MAKING - ED course Complexity details: reviewed old records, reviewed results, re-evaluated patient, considered differential, d/w patient ED course: 53-year-old female is fallen off of her wash machine directly onto her back she has had a concussion and has pain to her shoulder and lower back. There is no evidence of fracture on x-ray examination and no evidence of intracranial bleed on CT scanning of the head. Patient is given instructions regarding concussion and back contusion as well as shoulder sprain and she is treated in the emergency department with oral Percocet. She has a prior history of use of Percocet for preop and postoperative pain and she has tolerated this medicine without excessive use. Departure - Departure Disposition: 01 Home, Self Care Clinical Impression: Contusion of back Qualifiers: Encounter type: initial encounter Laterality: unspecified laterality Qualified Code(s): S20.229A - Contusion of unspecified back wall of thorax, initial encounter Concussion Qualifiers: Encounter type: initial encounter Loss of consciousness presence/duration: without LOC Qualified Code(s): S06.0X0A - Concussion without loss of consciousness, initial encounter Sprain of shoulder, right Qualifiers: Encounter type: initial encounter Shoulder sprain type: unspecified sprain Qualified Code(s): S43.401A - Unspecified sprain of right shoulder joint, initial encounter Condition: Stable Instructions: ED Concussion, ED Contusion Back, ED Sprain Shoulder Follow-Up: Pippa Turk ARNP, [facility] [Primary Care Provider] - Prescriptions: Oxycodone HCl/Acetaminophen [Percocet 5-325 mg Tablet] 1 - 2 each PO Q6H PRN #14 tablet PRN Reason: pain
[2019-06-02] MEDS ORDERED: oxyCODONE 5 MG TABLET PO STA (20:43)
[2019-06-02] MEDS ORDERED: ACETAMINOPHEN 325 MG TABLET PO STA (20:44)
--- NOTE | 2019-06-02 21:11 | CT Report ---
Reason: fall from washing machine concussion Procedure Date: 06/02/2019 Accession Number: [id number] / [id number] Procedure: CT - HEAD WO CPT Code: Final Report FULL RESULT: EXAM: CT HEAD EXAM DATE: 06/02/2019 08:58 PM. CLINICAL HISTORY: Fall from washing machine concussion. COMPARISON: None. TECHNIQUE: Multiaxial CT images were obtained from the foramen magnum to the vertex. Reformats: Sagittal and coronal. IV contrast: None. In accordance with CT protocol optimization, one or more of the following dose reduction techniques were utilized for this exam: automated exposure control, adjustment of mA and/or KV based on patient size, or use of iterative reconstructive technique. FINDINGS: Parenchyma: No intraparenchymal hemorrhage. No evidence of mass, midline shift, or CT findings of infarction. Rucker-white differentiation is distinct. Extraaxial Spaces: Normal for age. No subdural or epidural collections identified. Ventricles: Normal in size and position. Sinuses and Orbits: Imaged paranasal sinuses, orbits, and mastoids show no significant abnormality. Bones: No evidence of fracture or calvarial defect. Other: None. IMPRESSION: Normal head CT. RADIA
--- NOTE | 2019-06-02 21:23 | XRAY Report ---
Reason: fall right shoulder pain s/p cuff repair Procedure Date: 06/02/2019 Accession Number: [id number] / [id number] Procedure: XR - Shoulder 3 View RT CPT Code: Final Report FULL RESULT: EXAM: RIGHT SHOULDER RADIOGRAPHY EXAM DATE: 06/02/2019 08:45 PM. CLINICAL HISTORY: Fall right shoulder pain status post cuff repair. COMPARISON: SHOULDER 2 VIEW RT 12/22/2017 12:58 PM. TECHNIQUE: 3 views. FINDINGS: Bones: No fractures or bone lesions. Tendon anchor noted at the humeral head. Joints: The glenohumeral and acromioclavicular joints are normal. Soft tissues: The visualized hemithorax is unremarkable. No soft tissue swelling. IMPRESSION: No acute bony abnormality. RADIA
[2019-06-02] MEDS ORDERED: oxyCODONE/ACET 5/325 Prepack 4 PO STA (21:49)
--- NOTE | 2019-06-02 21:58 | XRAY Report ---
Reason: fall back pain s/p surgery Procedure Date: 06/02/2019 Accession Number: [id number] / [id number] Procedure: XR - Lumbar Spine 2 View CPT Code: Final Report FULL RESULT: EXAM: LUMBOSACRAL SPINE RADIOGRAPHY EXAM DATE: 06/02/2019 09:13 PM. CLINICAL HISTORY: Fall back pain status post surgery. COMPARISONS: LUMBAR SPINE 2 VIEW 03/29/2018 5:27 PM. TECHNIQUE: 3 views. FINDINGS: Posterior rods and pedicle screws with interbody prosthesis seen at L4-L5. Large L5-S1 facet arthropathy. Minimal anterolisthesis L5 on S1 with mild endplate osteophytes. Moderate L3-L4 and L2-L3 degenerative disk disease. Mild T12 and L1 mild anterior wedging of the vertebral bodies, appear chronic. No scoliosis. No evidence for acute fracture. IMPRESSION: No evidence for acute fracture. Degenerative and postsurgical changes as above. RADIA
[2019-06-02 21:59] VITALS: BP 124/78
== END 2019-06-02 21:58 | disposition home or self-care (01) ==
LOC: ED 19:45
DX: S06.0X0A Concussion without loss of consciousness, initial encounter (principal); S43.401A Unspecified sprain of right shoulder joint, initial encounter; S30.0XXA Contusion of lower back and pelvis, initial encounter; W17.89XA Other fall from one level to another, initial encounter; Y93.E9 Activity, other interior property and clothing maintenance; Y92.008 Other place in unspecified non-institutional (private) residence as the place of occurrence of the external cause; I10 Essential (primary) hypertension; E11.9 Type 2 diabetes mellitus without complications; Z79.84 Long term (current) use of oral hypoglycemic drugs
CPT/HCPCS: 70450; 72100; 73030; 99284; A9270

== ENCOUNTER 2019-09-20 18:40 | Outpatient (CLI) | payer MEDICAID | END 2019-09-20 23:59 | disposition critical access hospital (66) | LOC: EMS 18:40 | PROVIDERS: ATTEND Surgery | DX: R41.82 Altered mental status, unspecified (principal) | CPT/HCPCS: A0425; A0427; A0999 ==

== ENCOUNTER 2019-09-20 18:55 | Emergency (ER) | payer MEDICAID, OTHER ==
[2019-09-20] MEDS ORDERED: D5.45NS W/20 MEQ KCL 1,000 ML IV STA (19:02)
--- NOTE | 2019-09-20 19:17 | ED Physician Documentation ---
History of Present Illness - Stated complaint Stated Complaint: OD - Chief complaint Chief Complaint: Neuro - History obtained from History obtained from: Patient, EMS - History of Present Illness Timing: Unknown - Additonal information Additional information: Patient was last seen 2 days ago. Her friend found her today unconscious off the edge of her bed. Unclear what happened. There is a bottle of empty Ativan pills next to the bed. 1 mg. There were 42 pills and this was filled 3 days ago. Per EMS, patient has a history of psychiatric illness. Patient unable to give history. No other history available at this time. Fingerstick glucose was 102 on scene. 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 - Present Medications Home Medications: Ambulatory Orders Medication Instructions Recorded Confirmed Citalopram [CeleXA] 20 mg PO DAILY 01/20/18 05/08/18 Cyclobenzaprine [Flexeril] 10 mg PO QPM 01/20/18 05/08/18 Lamotrigine [Lamotrigine ER] 100 mg PO BID 01/20/18 05/08/18 Cholecalciferol [Vitamin D3] 10,000 unit PO DAILY 05/08/18 05/08/18 Dextroamphetamine/Amphetamine 20 mg PO DAILY 05/08/18 05/08/18 [Adderall 20 mg Tablet] Metformin HCl 500 mg PO DAILY 05/08/18 05/08/18 Omeprazole [PriLOSEC] 40 mg PO DAILY 05/08/18 05/08/18 Sucralfate [Carafate] 1 gm PO Q6H 05/08/18 05/08/18 Oxycodone HCl/Acetaminophen 1 - 2 each PO Q6H PRN #14 tablet 06/02/19 [Percocet 5-325 mg Tablet] - Allergies Allergies/Adverse Reactions: Allergies Allergy/AdvReac Type Severity Reaction Status Date / Time No Known Drug Allergies Allergy Verified 09/20/19 19:01 - Social History Does the pt smoke?: No Smoking Status: Never smoker Does the pt drink ETOH?: No Does the pt have substance abuse?: No PD ED PE NORMAL - Vitals Vital signs reviewed: Yes - General General: Other (Drowsy, arouses to deep stimuli only) - HEENT HEENT: Other (Ecchymosis to the bilateral periorbital areas and forehead.) - Neck Neck: Other (No step-off or deformity) - Cardiac Cardiac: RRR, Strong equal pulses - Respiratory Respiratory: No respiratory distress, Clear bilaterally - Abdomen Abdomen: Soft, Non tender, Non distended - Back Back: No spinal TTP - Derm Derm: Warm and dry - Extremities Extremities: No deformity - Neuro Neuro: Other (Responsive to deep stimuli) Eye Opening: To Pain Motor: Withdraws to Pain Verbal: Confused GCS Score: 10 Results - Vitals Vitals: Vital Signs - 24 hr 09/20/19 09/20/19 09/20/19 18:55 19:03 19:29 Temperature 36.4 C L Heart Rate 79 82 79 Respiratory 16 20 16 Rate Blood Pressure 116/64 114/91 H 118/83 H O2 Saturation 100 100 100 09/20/19 09/20/19 09/20/19 19:45 20:25 20:56 Temperature Heart Rate 77 75 73 Respiratory 14 14 12 Rate Blood Pressure 112/75 103/61 110/71 O2 Saturation 99 98 100 09/20/19 09/20/19 21:19 21:37 Temperature Heart Rate 73 73 Respiratory 14 14 Rate Blood Pressure 94/80 104/73 O2 Saturation 100 99 Oxygen O2 Source Nasal cannula - EKG (time done) 1930 Rate: Rate (enter#) (79) Rhythm: NSR [place]: Normal Intervals: Normal [place] QRS: Normal Ischemia: Normal ST segments - Labs Labs: Laboratory Tests 09/20/19 09/20/19 09/20/19 19:04 19:04 19:04 WBC 10.7 RBC 3.81 L Hgb 11.1 L Hct 36.5 L MCV 95.8 MCH 29.1 MCHC 30.4 L RDW 14.0 Plt Count 285 MPV 9.9 Neut # (Auto) 8.2 H Lymph # (Auto) 1.4 L [place] # (Auto) 0.6 Eos # (Auto) 0.3 Baso # (Auto) 0.1 Absolute Nucleated RBC 0.00 Nucleated RBC % 0.0 Sodium 141 Potassium 2.9 L Chloride 105 Carbon Dioxide 27 Anion Gap 9.0 BUN 19 Creatinine 1.2 H Estimated GFR (MDRD) 47 L Glucose 94 Calcium 8.8 Total Bilirubin 0.2 AST 22 ALT 17 Alkaline Phosphatase 93 Total Protein 6.5 L Albumin 3.6 Globulin 2.9 Albumin/Globulin Ratio 1.2 Lipase 30 TSH 6.35 H Urine Color Urine Clarity Urine pH Ur Specific [place] Urine Protein Urine Glucose (UA) Urine Ketones Urine Occult Blood Urine Nitrite Urine Bilirubin Urine Urobilinogen Ur Leukocyte Esterase Urine RBC Urine WBC Ur Squamous Epith Cells Urine Bacteria Ur Microscopic Review Urine Culture Comments Salicylates < 6.0 Urine Opiates Screen Ur Oxycodone Screen Urine Methadone Screen Ur Propoxyphene Screen Acetaminophen < 10 L Ur Barbiturates Screen Ur Tricyclics Screen Ur Phencyclidine Scrn Ur Amphetamine Screen U Methamphetamines Scrn U Benzodiazepines Scrn Urine Cocaine Screen U Cannabinoids Screen Ethyl Alcohol < 5.0 09/20/19 19:20 WBC RBC Hgb Hct MCV MCH MCHC RDW Plt Count MPV Neut # (Auto) Lymph # (Auto) [place] # (Auto) Eos # (Auto) Baso # (Auto) Absolute Nucleated RBC Nucleated RBC % Sodium Potassium Chloride Carbon Dioxide Anion Gap BUN Creatinine Estimated GFR (MDRD) Glucose Calcium Total Bilirubin AST ALT Alkaline Phosphatase Total Protein Albumin Globulin Albumin/Globulin Ratio Lipase TSH Urine Color YELLOW Urine Clarity CLEAR Urine pH 6.5 Ur Specific [place] 1.015 Urine Protein NEGATIVE Urine Glucose (UA) NEGATIVE Urine Ketones NEGATIVE Urine Occult Blood NEGATIVE Urine Nitrite POSITIVE H Urine Bilirubin NEGATIVE Urine Urobilinogen 0.2 (NORMAL) Ur Leukocyte Esterase SMALL H Urine RBC 6-10 H Urine WBC >25 H Ur Squamous Epith Cells NONE SEEN Urine Bacteria Many H Ur Microscopic Review INDICATED Urine Culture Comments INDICATED Salicylates Urine Opiates Screen NEGATIVE Ur Oxycodone Screen NEGATIVE Urine Methadone Screen NEGATIVE Ur Propoxyphene Screen NEGATIVE Acetaminophen Ur Barbiturates Screen NEGATIVE Ur Tricyclics Screen POSITIVE H Ur Phencyclidine Scrn NEGATIVE Ur Amphetamine Screen NEGATIVE U Methamphetamines Scrn NEGATIVE U Benzodiazepines Scrn POSITIVE H Urine Cocaine Screen NEGATIVE U Cannabinoids Screen NEGATIVE Ethyl Alcohol - Rads (name of study) Head CT Radiology: Prelim report reviewed, EMP read contemporaneously, See rad report (No acute intracranial abnormality) C spine CT Radiology: Prelim report reviewed, EMP read contemporaneously, See rad report (No acute fractures) PD MEDICAL DECISION MAKING - ED course Complexity details: reviewed results, re-evaluated patient, considered differential, d/w patient, d/w child welfare consultant ED course: Patient with an apparent Ativan overdose. Likely intentional. Discussed the case with poison control and they recommend at least a 6 to 8-hour observation period. Patient is arousable, does not need to be intubated at this time. She is signed out to the [facility] emergency department physician awaiting reevaluation when she is awake. She will likely need a social work consult in the morning for suicidal ideation. She is treated for UTI as well with Rocephin. Given IV fluids as well. This document was made in part using voice recognition software. While efforts are made to proofread this document, sound alike and grammatical errors may occur. Departure - Departure Clinical Impression: UTI (urinary tract infection) Qualifiers: Urinary tract infection type: acute cystitis Hematuria presence: without hematuria Qualified Code(s): N30.00 - Acute cystitis without hematuria Medication overdose Qualifiers: Encounter type: initial encounter Injury intent: undetermined intent Qualified Code(s): T50.904A - Poisoning by unspecified drugs, medicaments and biological substances, undetermined, initial encounter Condition: Stable
[2019-09-20 19:24] LABS: BASOPHILS # (AUTO) 0.1 10^3/uL (0.0-0.1); BASOPHILS % (AUTO) 0.5 %; EOSINOPHILS # (AUTO) 0.3 10^3/uL (0.0-0.7); EOSINOPHILS % (AUTO) 2.8 %; HGB - HEMOGLOBIN 11.1 g/dL (12.0-16.0); LYMPHOCYTES # (AUTO) 1.4 10^3/uL (1.5-3.5); LYMPHOCYTES % (AUTO) 13.5 %; MEAN CORPUSCULAR HEMOGLOBIN 29.1 pg (27.0-31.0); MEAN CORPUSCULAR HGB CONC 30.4 g/dL (32.0-36.0); MEAN CORPUSCULAR VOLUME 95.8 fL (81.0-99.0); MEAN PLATELET VOLUME 9.9 fL (7.9-10.8); MONOCYTES # (AUTO) 0.6 10^3/uL (0.0-1.0); MONOCYTES % (AUTO) 5.9 %; NEUTROPHILS # (AUTO) 8.2 10^3/uL (1.5-6.6); NEUTROPHILS % (AUTO) 76.4 %; PLT - PLATELET COUNT 285 10^3/uL (130-450); RED BLOOD COUNT 3.81 10^6/uL (4.20-5.40); WHITE BLOOD COUNT 10.7 x10^3/uL (4.8-10.8)
[2019-09-20 19:26] LABS: MUDS CUTOFF CONCENTRATIONS CUTOFF CONC BELOW:
[2019-09-20 19:30] LABS: BILIRUBIN,URINE NEGATIVE (NEGATIVE); GLUCOSE, URINE (UA) NEGATIVE (NEGATIVE); KETONES,URINE (UA) NEGATIVE (NEGATIVE); LEUKOCYTE ESTERASE, URINE SMALL (NEGATIVE); NITRITE,URINE POSITIVE (NEGATIVE); OCCULT BLOOD,URINE NEGATIVE (NEGATIVE); PH,URINE 6.5 PH (5.0-7.5); PROTEIN,URINE NEGATIVE (NEGATIVE); UROBILINOGEN,URINE 0.2 (NORMAL) E.U./dL (NORMAL)
[2019-09-20 19:37] LABS: CLARITY,URINE CLEAR (CLEAR)
[2019-09-20 19:38] LABS: BACTERIA,URINE Many /HPF (None Seen); SQUAMOUS EPITHELIAL CELL,UR NONE SEEN (<= Few)
[2019-09-20 19:40] LABS: AMPHETAMINE SCREEN,URINE NEGATIVE (NEGATIVE); BENZODIAZEPINES SCREEN, URINE POSITIVE (NEGATIVE); COCAINE SCREEN URINE NEGATIVE (NEGATIVE); METHAMPHETAMINES SCREEN, URINE NEGATIVE (NEGATIVE); OPIATE SCREEN, URINE NEGATIVE (NEGATIVE); TRICYCLIC ANTIDEPRESSANT,URINE POSITIVE (NEGATIVE)
[2019-09-20 19:41] LABS: METHADONE SCREEN, URINE NEGATIVE (NEGATIVE); OXYCODONE SCREEN, URINE NEGATIVE (NEGATIVE); PROPOXYPHENE SCREEN, URINE NEGATIVE (NEGATIVE)
[2019-09-20 19:42] LABS: ACETAMINOPHEN < 10 ug/mL (10-30); ALBUMIN 3.6 g/dL (3.2-5.5); ALBUMIN/GLOBULIN RATIO 1.2 (1.0-2.2); ALKALINE PHOSPHATASE 93 IU/L (42-121); ALT ALANINE AMINOTRANSFERASE 17 IU/L (10-60); AST ASPARTATE AMINOTRANSFERASE 22 IU/L (10-42); BILIRUBIN,TOTAL 0.2 mg/dL (0.2-1.0); BUN - BLOOD UREA NITROGEN 19 mg/dL (6-20); CALCIUM 8.8 mg/dL (8.5-10.3); CARBON DIOXIDE - CO2 27 mmol/L (21-32); CHLORIDE 105 mmol/L (101-111); CREATININE 1.2 mg/dL (0.4-1.0); GLUCOSE 94 mg/dL (70-100); LIPASE 30 U/L (22-51); SALICYLATE < 6.0 mg/dL; SODIUM 141 mmol/L (135-145); TOTAL PROTEIN 6.5 g/dL (6.7-8.2)
[2019-09-20] MEDS ORDERED: cefTRIAXone 1 GM VIAL IVP STA (19:56)
--- NOTE | 2019-09-20 20:10 | CT Report ---
Reason: fall, ALOC Procedure Date: 09/20/2019 Accession Number: [id number] / [id number] Procedure: CT - CERVICAL SPINE WO CPT Code: Final Report FULL RESULT: EXAM: CT CERVICAL SPINE WITHOUT CONTRAST DATE: 09/20/2019 07:14 PM. HISTORY: Fall, ALOC. COMPARISONS: None TECHNIQUE: Thin-section axial images were acquired of the cervical spine without contrast. Post-processing: Coronal and sagittal reformats. Other: None. In accordance with CT protocol optimization, one or more of the following dose reduction techniques were utilized for this exam: automated exposure control, adjustment of mA and/or KV based on patient size, or use of iterative reconstructive technique. FINDINGS: Alignment: Within normal limits. No scoliosis or spondylolisthesis. Bones: No acute fractures. Severe degenerative disk disease at C2-C3 and C6-T1. Moderate to severe spinal canal narrowing at C6-C7 by posterior disk osteophyte complex and uncovertebral joint hypertrophy. Other: Visualized unenhanced soft tissues demonstrate no acute abnormalities. The partially imaged lung apices are clear. IMPRESSION: No acute cervical spine fractures. RADIA
--- NOTE | 2019-09-20 20:17 | CT Report ---
Reason: fall, ALOC Procedure Date: 09/20/2019 Accession Number: [id number] / [id number] Procedure: CT - HEAD WO CPT Code: Final Report FULL RESULT: EXAM: CT HEAD EXAM DATE: 09/20/2019 07:14 PM. CLINICAL HISTORY: Fall, ALOC. COMPARISON: HEAD W/O 06/02/2019 8:52 PM. TECHNIQUE: Multiaxial CT images were obtained from the foramen magnum to the vertex. Reformats: Sagittal and coronal. IV contrast: None. In accordance with CT protocol optimization, one or more of the following dose reduction techniques were utilized for this exam: automated exposure control, adjustment of mA and/or KV based on patient size, or use of iterative reconstructive technique. FINDINGS: Parenchyma: No intraparenchymal hemorrhage. No evidence of mass, midline shift, or CT findings of infarction. Rucker-white differentiation is distinct. Extraaxial Spaces: Normal for age. No subdural or epidural collections identified. Ventricles: Normal in size and position. Sinuses and Orbits: Imaged paranasal sinuses, orbits, and mastoids show no significant abnormality. Bones: No evidence of fracture or calvarial defect. Other: None. IMPRESSION: Negative for intracranial hemorrhage, mass-effect or shift. RADIA
[2019-09-21] MEDS ORDERED: IBUPROFEN 600 MG TABLET PO STA (07:59)
[2019-09-21 08:10] LABS: CALCIUM 8.4 mg/dL (8.5-10.3); CREATININE 1.1 mg/dL (0.4-1.0)
[2019-09-21] MEDS ORDERED: D5.45NS W/20 MEQ KCL 1,000 ML IV STA (09:44)
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
[2019-09-21 16:48] LABS: BASOPHILS # (AUTO) 0.1 10^3/uL (0.0-0.1); BASOPHILS % (AUTO) 0.8 %; EOSINOPHILS # (AUTO) 0.4 10^3/uL (0.0-0.7); EOSINOPHILS % (AUTO) 4.4 %; LYMPHOCYTES # (AUTO) 1.7 10^3/uL (1.5-3.5); LYMPHOCYTES % (AUTO) 18.2 %; MEAN CORPUSCULAR HEMOGLOBIN 30.9 pg (27.0-31.0); MEAN CORPUSCULAR HGB CONC 31.6 g/dL (32.0-36.0); MEAN CORPUSCULAR VOLUME 97.8 fL (81.0-99.0); MEAN PLATELET VOLUME 9.5 fL (7.9-10.8); MONOCYTES # (AUTO) 0.4 10^3/uL (0.0-1.0); MONOCYTES % (AUTO) 4.6 %; NEUTROPHILS % (AUTO) 71.2 %; PLT - PLATELET COUNT 284 10^3/uL (130-450); RED BLOOD COUNT 3.56 10^6/uL (4.20-5.40); RED CELL DISTRIBUTION WIDTH 14.1 % (12.0-15.0); WHITE BLOOD COUNT 9.3 x10^3/uL (4.8-10.8)
[2019-09-21 16:53] LABS: HCG UR QUAL NEGATIVE
[2019-09-21 17:09] LABS: CALCIUM 8.5 mg/dL (8.5-10.3); CREATININE 1.2 mg/dL (0.4-1.0)
[2019-09-21 17:40] LABS: NEUTROPHILS # (AUTO) 6.6 10^3/uL (1.5-6.6)
[2019-09-21] MEDS ORDERED: NITROFURANTOIN MACRO 100 MG CAPSULE PO STA (18:31)
[2019-09-21] MEDS ORDERED: AZITHROMYCIN 250 MG TABLET PO STA (20:49)
[2019-09-21] MEDS ORDERED: ALPRAZolam 0.25 MG TABLET PO STA (21:51)
[2019-09-22 00:36] VITALS: BP 139/99
[2019-09-22 01:36] LABS: LITHIUM 0.44 mmol/L
[2019-09-22 18:02] LABS: TRICHOMONAS VAGINALIS DNA NEGATIVE (NEGATIVE)
[2019-09-23 13:19] LABS: HIV AG/AB 4TH GEN NON-REACTIVE (NON-REACTIVE)
--- NOTE | 2019-09-26 07:43 | ED Physician Documentation ---
ED Addendum - Addendum Addendum: 09/26/19 07:41 The patient remained stable overnight. I am dictating this as a late addendum. I had seen the patient and transfer of care from overnight to the morning shift. She did not have any problems overnight. Review of her labs from yesterday had shown a low potassium level that had been addressed and so recheck electrolytes was ordered. Her usual morning medicines were allowed. Social work and [facility] were involved.
--- NOTE | 2019-10-07 20:33 | ED Physician Documentation ---
ED Addendum - Addendum Addendum: 10/07/19 20:31 Late entry addendum. I received sign-out from Dr. Gomez on night of 09/20/19. Patient requires several hours to clear from her overdose per Poison Control Center's advice. In order to facilitate potential transfer, I ordered a SW consult. The potentially accepting facility requested that lab work include serum lithium level and thus I ordered this as well.
== END 2019-09-22 02:32 ==
LOC: EDUNIT# → ED 18:55
DX: T50.904A Poisoning by unspecified drugs, medicaments and biological substances, undetermined, initial encounter (principal); R41.82 Altered mental status, unspecified; Y92.003 Bedroom of unspecified non-institutional (private) residence as the place of occurrence of the external cause; R45.851 Suicidal ideations; N30.00 Acute cystitis without hematuria; T76.21XA Adult sexual abuse, suspected, initial encounter; S00.12XA Contusion of left eyelid and periocular area, initial encounter; S00.11XA Contusion of right eyelid and periocular area, initial encounter; S00.83XA Contusion of other part of head, initial encounter; I10 Essential (primary) hypertension; E11.9 Type 2 diabetes mellitus without complications; E87.6 Hypokalemia; Z79.84 Long term (current) use of oral hypoglycemic drugs
CPT/HCPCS: 36415; 51702; 70450; 72125; 80048; 80053; 80178; 80306; 80307; 80320; 80329; 81001; 81025; 83690; 84443; 85025; 87086; 87181; 87389; 87491; 87591; 87661; 93005; 96365; 96366; 96375; 99285; A9270; 81003

== ENCOUNTER 2019-12-31 08:00 | Outpatient (CLI) | payer MEDICAID | END 2019-12-31 23:59 | disposition home or self-care (01) | LOC: LAB.R 08:00 | PROVIDERS: ATTEND Nurse Practitioner | DX: R30.0 Dysuria (principal) | CPT/HCPCS: 87086 ==

== ENCOUNTER 2019-12-31 15:35 | Outpatient (CLI) | payer MEDICAID ==
[2019-12-31 18:32] LABS: CALCIUM 9.3 mg/dL (8.5-10.3); CREATININE 1.1 mg/dL (0.4-1.0)
[2019-12-31 18:58] LABS: LITHIUM 1.24 mmol/L
[2019-12-31 19:13] LABS: HB2 TOTAL 12.4 g/dL; HEMOGLOBIN A1C 0.47 g/dL; HEMOGLOBIN A1C % 5.6 % (4.6-6.2)
== END 2019-12-31 23:59 | disposition home or self-care (01) ==
LOC: LAB.WCP 15:35
PROVIDERS: ATTEND Nurse Practitioner
DX: E11.65 Type 2 diabetes mellitus with hyperglycemia (principal); Z79.899 Other long term (current) drug therapy; R30.0 Dysuria
CPT/HCPCS: 36415; 80048; 80178; 82043; 83036; 87086

== ENCOUNTER 2020-02-12 08:00 | Outpatient (CLI) | payer MEDICAID | END 2020-02-12 23:59 | disposition home or self-care (01) | LOC: LAB.R 08:00 | PROVIDERS: ATTEND Nurse Practitioner Family | DX: R35.0 Frequency of micturition (principal) | CPT/HCPCS: 87086 ==

== ENCOUNTER 2020-02-12 15:32 | Emergency (ER) | payer MEDICAID ==
[2020-02-12 16:38] LABS: BILIRUBIN,URINE NEGATIVE (NEGATIVE); GLUCOSE, URINE (UA) NEGATIVE (NEGATIVE); KETONES,URINE (UA) NEGATIVE (NEGATIVE); LEUKOCYTE ESTERASE, URINE NEGATIVE (NEGATIVE); NITRITE,URINE POSITIVE (NEGATIVE); OCCULT BLOOD,URINE NEGATIVE (NEGATIVE); PH,URINE 6.5 PH (5.0-7.5); PROTEIN,URINE NEGATIVE (NEGATIVE); UROBILINOGEN,URINE 0.2 (NORMAL) E.U./dL (NORMAL)
[2020-02-12 16:41] LABS: CLARITY,URINE CLEAR (CLEAR)
[2020-02-12 16:54] LABS: BACTERIA,URINE Few /HPF (None Seen); RBC,URINE 0-5 /HPF (0-5); SQUAMOUS EPITHELIAL CELL,UR FEW Squamous (<= Few)
--- NOTE | 2020-02-12 17:13 | ED Physician Documentation ---
PD HPI ABD PAIN - Stated complaint Stated Complaint: BACK/SIDE PX/SENT BY - Chief complaint Chief Complaint: Abd Pain - History obtained from History obtained from: Patient - History of Present Illness Timing - onset: How many days ago Timing - duration: Hours Timing - details: Abrupt onset, Still present in ED Quality: Cramping, Aching, Pain Radiation: Right flank Improved by: No: Eating Worsened by: No: Eating, Moving, Breathing Associated symptoms: Nausea, Dysuria, Other (back apin, more to the right.). 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 - Present Medications Home Medications: Ambulatory Orders Medication Instructions Recorded Confirmed Citalopram [CeleXA] 20 mg PO DAILY 01/20/18 05/08/18 Cyclobenzaprine [Flexeril] 10 mg PO QPM 01/20/18 05/08/18 Lamotrigine [Lamotrigine ER] 100 mg PO BID 01/20/18 05/08/18 Cholecalciferol [Vitamin D3] 10,000 unit PO DAILY 05/08/18 05/08/18 Dextroamphetamine/Amphetamine 20 mg PO DAILY 05/08/18 05/08/18 [Adderall 20 mg Tablet] Metformin HCl 500 mg PO DAILY 05/08/18 05/08/18 Omeprazole [PriLOSEC] 40 mg PO DAILY 05/08/18 05/08/18 Sucralfate [Carafate] 1 gm PO Q6H 05/08/18 05/08/18 Oxycodone HCl/Acetaminophen 1 - 2 each PO Q6H PRN #14 tablet 06/02/19 [Percocet 5-325 mg Tablet] Cephalexin [Keflex] 500 mg PO Q6H #28 capsule 02/12/20 Naproxen 375 mg PO TID #30 tablet 02/12/20 Oxycodone HCl/Acetaminophen 1 each PO Q6H PRN #20 tablet 02/12/20 [Percocet 5-325 mg Tablet] - Allergies Allergies/Adverse Reactions: Allergies Allergy/AdvReac Type Severity Reaction Status Date / Time No Known Drug Allergies Allergy Verified 02/12/20 15:55 - Social History Does the pt smoke?: No Smoking Status: Never smoker Does the pt drink ETOH?: No Does the pt have substance abuse?: No PD ED PE NORMAL - Vitals Vital signs reviewed: Yes - General General: Alert and oriented X 3, Well developed/nourished, Other (appears in pain due to right back) - HEENT HEENT: Atraumatic, Pharynx benign - Neck Neck: Supple, no meningeal sign, No adenopathy - Cardiac Cardiac: RRR, No murmur - Respiratory Respiratory: Clear bilaterally - Abdomen Abdomen: Soft, Non tender - Back Back: No spinal TTP, Other (right CVA area tender to percussion.) - Derm Derm: Normal color - Extremities Extremities: Normal ROM s pain, No edema, No calf tenderness / cord - Neuro Neuro: Alert and oriented X 3, No motor deficit, Normal speech Results - Vitals Vitals: Vital Signs - 24 hr 02/12/20 02/12/20 02/12/20 15:55 15:57 17:57 Temperature 37.3 C Heart Rate 81 80 76 Respiratory 16 16 16 Rate Blood Pressure 144/78 H 132/74 H 128/68 O2 Saturation 99 99 97 02/12/20 19:40 Temperature 36.7 C Heart Rate 80 Respiratory 16 Rate Blood Pressure 132/65 H O2 Saturation 98 Oxygen O2 Source Room air - Labs Labs: Laboratory Tests 02/12/20 02/12/20 02/12/20 16:21 17:35 17:35 WBC 12.7 H RBC 3.78 L Hgb 11.7 L Hct 37.8 MCV 100.0 H MCH 31.0 MCHC 31.0 L RDW 18.1 H Plt Count 317 MPV 8.9 Neut # (Auto) 9.3 H Lymph # (Auto) 2.2 [place] # (Auto) 0.6 Eos # (Auto) 0.4 Baso # (Auto) 0.1 Absolute Nucleated RBC 0.00 Nucleated RBC % 0.0 Sodium 139 Potassium 3.9 Chloride 104 Carbon Dioxide 26 Anion Gap 9.0 BUN 16 Creatinine 1.1 H Estimated GFR (MDRD) 52 L Glucose 97 Calcium 9.1 Total Bilirubin 0.3 AST 19 ALT 23 Alkaline Phosphatase 94 Total Protein 6.6 L Albumin 3.9 Globulin 2.7 Albumin/Globulin Ratio 1.4 Lipase 53 H Urine Color YELLOW Urine Clarity CLEAR Urine pH 6.5 Ur Specific [place] 1.010 Urine Protein NEGATIVE Urine Glucose (UA) NEGATIVE Urine Ketones NEGATIVE Urine Occult Blood NEGATIVE Urine Nitrite POSITIVE H Urine Bilirubin NEGATIVE Urine Urobilinogen 0.2 (NORMAL) Ur Leukocyte Esterase NEGATIVE Urine RBC 0-5 Urine WBC 4-5 Ur Squamous Epith Cells FEW Squamous Urine Bacteria Few Ur Microscopic Review INDICATED Urine Culture Comments INDICATED - Rads (name of study) KUB CT Radiology: Prelim report reviewed (stones in both kidneys, nonobstructing. No oreteral stones. No kidney swelling. No other acute process. ), See rad report PD MEDICAL DECISION MAKING - ED course Complexity details: reviewed results, re-evaluated patient, considered differential, d/w patient Departure - Departure Disposition: Home, Self Care Clinical Impression: Acute flank pain UTI (urinary tract infection) Qualifiers: Urinary tract infection type: site unspecified Hematuria presence: without hematuria Qualified Code(s): N39.0 - Urinary tract infection, site not specified Condition: Stable Record reviewed to determine appropriate education?: Yes Instructions: ED Flank Pain Uncertain Cause, ED UTI Cystitis Female Follow-Up: Pippa Turk ARNP, [employer] [Primary Care Provider] - Prescriptions: Cephalexin [Keflex] 500 mg PO Q6H #28 capsule Naproxen 375 mg PO TID #30 tablet Oxycodone HCl/Acetaminophen [Percocet 5-325 mg Tablet] 1 each PO Q6H PRN #20 tablet PRN Reason: pain Comments: Your CT scan does not show any kidney stones passing in the ureters. (There are small stones in the kidney themselves which are not in the location to cause pain). Your urine test does show some signs of infection and your white count on blood test is slightly elevated. We therefore would treat it as a urinary tract infection and presume some inflammation of the kidneys. The CT scan did not show other cause for the pain. It is possible to be musculoskeletal and in which case the anti-inflammatory and pain medicine would still be appropriate. I wrote prescriptions for anti-inflammatory and pain medicine as well as cephalexin antibiotic. I would anticipate improvement over the next several days and resolution over 3 to 5 days. Recheck if not improving in that timeframe and return sooner if worse. Discharge Date/Time: 02/12/20 19:41
[2020-02-12 17:38] LABS: BASOPHILS # (AUTO) 0.1 10^3/uL (0.0-0.1); BASOPHILS % (AUTO) 0.7 %; EOSINOPHILS # (AUTO) 0.4 10^3/uL (0.0-0.7); EOSINOPHILS % (AUTO) 3.4 %; HGB - HEMOGLOBIN 11.7 g/dL (12.0-16.0); LYMPHOCYTES # (AUTO) 2.2 10^3/uL (1.5-3.5); LYMPHOCYTES % (AUTO) 17.3 %; MEAN PLATELET VOLUME 8.9 fL (7.9-10.8); MONOCYTES # (AUTO) 0.6 10^3/uL (0.0-1.0); MONOCYTES % (AUTO) 4.6 %; NEUTROPHILS # (AUTO) 9.3 10^3/uL (1.5-6.6); NEUTROPHILS % (AUTO) 73.4 %; PLT - PLATELET COUNT 317 10^3/uL (130-450); RED BLOOD COUNT 3.78 10^6/uL (4.20-5.40); RED CELL DISTRIBUTION WIDTH 18.1 % (12.0-15.0); WHITE BLOOD COUNT 12.7 x10^3/uL (4.8-10.8)
[2020-02-12] MEDS: HYDROmorphone 1 MG/ML CARPUJECT IVP STA ×2 (17:50→18:52)
[2020-02-12 17:51] LABS: ALBUMIN 3.9 g/dL (3.2-5.5); ALBUMIN/GLOBULIN RATIO 1.4 (1.0-2.2); BILIRUBIN,TOTAL 0.3 mg/dL (0.2-1.0); CALCIUM 9.1 mg/dL (8.5-10.3); CREATININE 1.1 mg/dL (0.4-1.0); TOTAL PROTEIN 6.6 g/dL (6.7-8.2)
[2020-02-12] MEDS: SODIUM CHLORIDE 0.9% 1,000 ML IV STA (17:51)
[2020-02-12] MEDS: KETOROLAC 30 MG/ML VIAL IVP STA (17:51)
[2020-02-12] MEDS: ONDANSETRON 4 MG/2 ML VIAL IVP STA (17:51)
--- NOTE | 2020-02-12 18:35 | CT Report ---
PROCEDURE: Abdomen/Pelvis WO INDICATIONS: flank to abd pain; h/o stones TECHNIQUE: Noncontrast 5 mm thick sections acquired from the diaphragms to the symphysis. 5 mm coronal and sagi ttal reformats were then performed. For radiation dose reduction, the following was used: automated exposure control, adjustment of mA and/or kV according to patient size. COMPARISON: 01/01/2019. FINDINGS: Image quality: Excellent. ABDOMEN: Lung bases: Mild left basilar atelectasis is seen. Heart size is normal. Solid organs: Liver and spleen are normal in size. Gallbladder is within normal limits Pancreas is normal in contours. No adrenal nodules. Kidneys are normal in size. Bilateral nonobstructing renal calculi are seen measures up to 6 mm in size in upper pole of right kidney and up to 3 mm in size in upper pole of left kidney. There is no hydronephrosis. No perinephric fat stranding. Bilateral urete rs are within normal limits. Peritoneum and bowel: Unenhanced bowel loops demonstrate normal wall thickness and caliber. No free fluid or air. Nodes and vessels: No retroperitoneal or mesenteric adenopathy by size criteria. Aorta and inferior vena cava are normal in caliber. Miscellaneous: No ventral hernias. PELVIS: Genitourinary: Bladder wall thickness is normal. No calcified bladder stone. Miscellaneous: No inguinal hernias or adenopathy. Bones: No suspicious bony lesions. No vertebral body compression fractures. IMPRESSION: 1. Bilateral nonobstructing renal calculi. No hydronephrosis or perinephric fat stranding. No gross a bnormality is seen in bilateral ureters and urinary bladder. 2. No bowel obstruction. No abnormal bowel wall thickening. No free fluid of free air. Reviewed by: Raymundo Jordan MD on 02/12/2020 6:34 PM PDT Approved by: Raymundo Jordan MD on 02/12/2020 6:34 PM PDT Station ID: [id number]
[2020-02-12] MEDS: cefTRIAXone 1 GM VIAL IVP STA (18:48)
[2020-02-12 19:41] VITALS: BP 132/65
== END 2020-02-12 19:41 | disposition home or self-care (01) ==
LOC: ED 15:32
DX: N39.0 Urinary tract infection, site not specified (principal); I10 Essential (primary) hypertension; E11.9 Type 2 diabetes mellitus without complications; Z79.84 Long term (current) use of oral hypoglycemic drugs; R35.0 Frequency of micturition
CPT/HCPCS: 36415; 74176; 80053; 81001; 83690; 85025; 87077; 87086; 87181; 96374; 96375; 96376; 99283; 99284; J1170; 81003